=== PATIENT | female | born 1955 | race Caucasian/White ===

== ENCOUNTER 2024-01-02 14:41 | Outpatient (CLI) | payer BC, MEDICARE | END 2024-01-02 22:37 | disposition short-term general hospital (02) | LOC: EMS 14:41 | PROVIDERS: ATTEND Physician Assistant Medical | DX: M54.41 Lumbago with sciatica, right side (principal) | CPT/HCPCS: A0425; A0427; A0888 ==

== ENCOUNTER 2024-01-10 10:18 | Outpatient (CLI) | payer BC, MEDICARE ==
--- NOTE | 2024-01-10 15:01 | MRI Report ---
PROCEDURE: Lumbar Spine WO INDICATIONS: LOW BACK PAIN TECHNIQUE: Noncontrast sagittal T1 spin echo and T2 fast echo, sagittal STIR, axial T1 and T2 fast spin echo thr ough the lumbar spine. In cases with scoliosis, additional coronal T2 fast spin echo may be performe d. COMPARISON: None. FINDINGS: Image quality: Excellent. Alignment and Curvature: There is minimal retrolisthesis seen at T12-L1 and L1-L2 and L2-L3. Minimal anterolisthesis is seen at L4-L5. Minimal 1 anterolisthesis is seen at the L5-S1 level. No associate d pars defects are seen. Bone Marrow: Marrow is of normal overall signal. No acute vertebral body compression fractures. Th ere is a remote Schmorl's node seen at the superior endplate of L1. Central compression deformity can be seen at the L2 level, with 40-50% loss of height centrally. Spinal Cord: Conus medullaris terminates at the L1 level. Visualized cord demonstrates normal signa l and size. Paraspinous Soft Tissues: No paravertebral masses. Or signal cysts can be seen involving both kidne ys. T12-L1: Moderate loss of disc height and disc signal are seen. Reactive marrow endplate changes a re seen anteriorly, which are hyperintense on T1-weighted and T2-weighted imaging, without significan t increased STIR signal. 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 No significant neural foraminal or central canal narrowing can be seen. L1-L2: Mild to moderate loss of disc height is seen posteriorly. Reactive marrow endplate changes are seen posteriorly, which are hyperintense on T1-weighted and T2-weighted imaging, without signifi cant increased STIR signal. These imaging findings are most consistent with fatty metaplasia (Modic t ype 2 change). Mild to moderate disc bulge is seen, with a central disc protrusion. Mild to Dr. Fla vum hypertrophy is seen. There is moderate right-sided and moderate to severe left-sided neuroforamin al narrowing. There is a degree of compression seen upon the exiting left L1 nerve root. Moderate ce ntral canal narrowing is seen. L2-L3: Mild loss of disc height and disc signal are seen. Moderate disc bulge is seen at this l evel. A superimposed central disc protrusion is seen. Mild to moderate facet hypertrophy is seen. T here is fluid seen within the right facet joint. There is at least moderate bilateral neuroforaminal narrowing seen, right worse than left. Compression is seen upon the exiting nerve roots. At least mo derate central canal narrowing is seen. L3-L4: Mild loss of disc height and disc signal are seen. Mild disc bulge is seen. Moderate fa cet hypertrophy is seen. Associated hypertrophy of the ligamentum flavum can be seen. Fluid is seen within the facet joints themselves. There is moderate left-sided and mild right-sided neuroforamina l narrowing. Moderate central canal narrowing is seen. L4-L5: The disc height is well-preserved. There is loss of disc signal seen. Mild disc bulge is se en. Prominent facet hypertrophy is seen at this level. Moderate bilateral neural foraminal narrowing is seen. Mild to moderate central canal narrowing is seen. L5-S1: Moderate loss of disc height and signal are seen. Mild to moderate disc bulge is seen. Promi nent facet hypertrophy is seen. Moderate bilateral neural foraminal narrowing is seen. No central canal narrowing is seen. IMPRESSION: Multiple levels of lumbar spine degenerative change can be seen, which are overall worst at L1-L2 and L2-L3. Reviewed by: Tim Silver MD on 01/10/2024 2:00 PM EMILY Approved by: Tim Silver MD on 01/10/2024 2:00 PM EMILY Station ID: [id number]
== END 2024-01-10 10:19 | disposition home or self-care (01) ==
LOC: DI 10:18
PROVIDERS: ATTEND Family Medicine
DX: M47.26 Other spondylosis with radiculopathy, lumbar region (principal)